=== PATIENT | female | born 1990 | race Caucasian/White ===

== ENCOUNTER 2021-03-13 19:01 | Emergency (ER) | payer OTHER ==
[~2021-03-13] VITALS: Ht 167.6 cm; Wt 113.6 kg
[2021-03-13 19:08] VITALS: TEMP 99.1
[2021-03-13] MEDS ORDERED: AMOXICILLIN 8751 TAB PO (21:24)
[2021-03-13 21:44] VITALS: BP 117/80; PULSE 105
== END 2021-03-13 21:46 | disposition home or self-care (01) ==
LOC: COL.ER 19:01
DX: S81.852A Open bite, left lower leg, initial encounter (principal); W54.0XXA Bitten by dog, initial encounter